=== PATIENT | female | born 1960 | race Caucasian/White ===

== ENCOUNTER 2021-02-28 12:31 | Emergency (ER) | payer OTHER ==
[~2021-02-28] VITALS: Ht 162.6 cm; Wt 75.0 kg
[2021-02-28 12:36] VITALS: BP 144/84
--- NOTE | 2021-02-28 12:53 | NUR ---
TO XRAY VIA WHEELCHAIR
--- NOTE | 2021-02-28 13:05 | NUR ---
PT HAS HAD HER COVID VACCINATIONS. MODERNA 1ST ONE ON JANUARY 10, 2021, 2ND ONE ON FEBRUARY 07, 2021.
== END 2021-02-28 14:04 | disposition home or self-care (01) ==
LOC: ER 12:32
DX: S93.402A Sprain of unspecified ligament of left ankle, initial encounter (principal); Z88.8 Allergy status to other drugs, medicaments and biological substances; X50.1XXA Overexertion from prolonged static or awkward postures, initial encounter; Y93.K1 Activity, walking an animal; Y92.89 Other specified places as the place of occurrence of the external cause; Y99.8 Other external cause status
CPT/HCPCS: 73610; 99283